=== PATIENT | male | born 1960 | race Caucasian/White ===

== ENCOUNTER 2017-09-20 04:02 | Emergency (ER) | payer BC, OTHER ==
--- OUTSIDE RECORDS SUMMARY | 2017-09-20 04:04 | XMS REPORT | Clinical Summary ---
:1960 Author Organization [facility] Address [address] [place] [address] Care Team Providers Name Role Phone Johnny Diez DO Primary Care Provider Allergies Active Allergy Reactions Severity Noted Date Comments No Known Drug Allergies Current Medications Prescription Sig. Disp. Refills Start Date End Date Status carvedilol (COREG) 25 Take 25 mg by 12/06/2016 Active MG tablet mouth 2 (two) times a day. furosemide (LASIX) 40 Take 40 mg by 12/06/2016 Active mg tablet mouth once daily. lansoprazole TAKE ONE CAPSULE 11/28/2016 Active (PREVACID) 30 MG BY MOUTH DAILY capsule 30 MIN BEFORE BREAKFAST metFORMIN (FORTAMET) Take 1,000 mg by 12/06/2016 Active 1,000 mg 24 hr tablet mouth 2 (two) times a day. spironolactone Take 25 mg by 11/28/2016 Active (ALDACTONE) 25 MG mouth once tablet daily. valsartan (DIOVAN) Take 160 mg by 01/05/2017 Active 160 MG tablet mouth 2 (two) times a day. allopurinol Take 100 mg by Active (ZYLOPRIM) 100 MG mouth daily. tablet liraglutide (VICTOZA Inject 1.2 mg Active 2-SAM) 0.6 mg/0.1 mL under the skin (18 mg/3 mL) pen daily. injector aspirin (ECOTRIN) 81 Take 81 mg by Active MG enteric coated mouth daily. tablet insulin asp Inject under the Active prt-insulin ASPART skin. (NovoLOG 70/30) 100 unit/mL (70-30) injection digOXIN (LANOXIN) 125 Take 125 mcg by 3 11/30/2016 03/31/2017 Discontinued mcg tablet mouth once daily. Active Problems Problem Noted Date Essential hypertension 03/24/2017 Overview: Added automatically from request for surgery [id number] SOB (shortness of breath) 03/24/2017 Overview: Added automatically from request for surgery [id number] Coronary artery disease involving [place] coronary artery of [place] heart 03/24 without angina pectoris Overview: Added automatically from request for surgery [id number] Cardiomyopathy 03/24/2017 Overview: Added automatically from request for surgery [id number] Benign hypertension 01/12/2017 Encounters Date Type Specialty Care Team Description 03/31/2017 Hospital Procedural Dat [facility] Essential hypertension; Encounter Cardiology MD Chitra Coronary artery disease involving [place] coronary artery of [place] heart without angina pectoris; Cardiomyopathy, unspecified type; SOB (shortness of breath) 03/31/2017 Procedure Pass Procedural Cardiology 03/31/2017 Surgery Procedural Dat [facility] Cv left heart cath w lv Cardiology MD Chitra gram cors [[id number] (CPT)] 03/24/2017 Orders Only Cardiology Sony Phelps MA Essential hypertension ( Primary Dx); Coronary artery disease involving [place] coronary artery of [place] heart without angina pectoris; Cardiomyopathy, unspecified type; SOB (shortness of breath) 03/23/2017 Office Visit Cardiology James Rudolph CAD in [place] artery MD As[place]ion (Primary Dx) 03/02/2017 Office Visit Cardiology James Rudolph Cardiomyopathy (Primary MMD Parveen Dx) 02/23/2017 Telephone Cardiology Nam Chatman RN 02/19/2017 Telephone Cardiology Angela Chatman RN 01/12/2017 Lab Lab James Rudolph Other hyperlipidemia MD Asuncion 01/12/2017 Office Visit Cardiology James Rudolph Essential hypertension ( Primary Dx); MD Asuncion Cardiomyopathy; Other hyperlipidemia; SOB (shortness of breath) on exertion; Abnormal electrocardiogram (ECG) (EKG) after 09/19/2016 Social History Tobacco Use Types Packs/Day Years Used Date Never Smoker Alcohol Use Drinks/Week oz/Week Comments Yes Sex Assigned at Date Recorded Not on file Last Filed Vital Signs Vital Sign Reading Time Taken Blood Pressure 126/76 03/31/2017 4:30 PM CDT Pulse 75 03/31/2017 4:30 PM CDT Temperature 35.8 C (96.5 F) 03/31/2017 9:13 AM CDT Respiratory Rate 24 03/31/2017 4:30 PM CDT Oxygen Saturation 96% 03/31/2017 4:30 PM CDT Inhaled Oxygen Concentration - - Weight 117 kg (258 lb) 03/31/2017 9:27 AM CDT Height 177.8 cm (5' 10") 03/31/2017 9:27 AM CDT Body Mass Index 37.02 03/31/2017 9:27 AM CDT Plan of Treatment Health Maintenance Due Date Last Done Comments COLONOSCOPY 2008 INFLUENZA VACCINE 01/12/2018 Procedures Procedure Name Priority Date/Time Associated Diagnosis Comments CV LEFT HEART CATH LV Routine 03/31/2017 Essential hypertension Results for GRAM WITH CORS 12:19 PM CDT SOB (shortness of this procedure breath) are in the Coronary artery disease results involving [place] section. coronary artery of [place] heart without angina pectoris Cardiomyopathy, unspecified type CV ECHOCARDIOGRAM Routine 01/29/2017 SOB (shortness of Results for STRESS TEST W CONTRAST 4:10 PM CDT breath) on exertion this procedure (CH/SPG) Abnormal are in the electrocardiogram (ECG) results (EKG) section. CV STRESS TEST Routine 01/29/2017 SOB (shortness of Results for ECHOCARDIOGRAPHY 4:10 PM CDT breath) on exertion this procedure Abnormal are in the electrocardiogram (ECG) results (EKG) section. after 09/19/2016 Results Cv analyst microbiology lab procedure (03/31/2017 12:19 PM) Component Value Ref Range Cath EF Estimated 35 % Specimen Performing Laboratory [facility] [address] [place] [address] Narrative Findings: LAD with calcification in the proximal and mid segment but no significant stenosis. RCA with mild non-obstructive disease LHC with LVEDP 12mmHg and enlarged LV cavity with moderately depressed EF. Hypokinesis most pronounced in the inferior wall Procedure Details Selective coronary angiography and LHC / LV gram via R TOLL PATROLMAN 4F Estimated GFR (03/31/2017 11:52 AM) Component Value Ref Range GFR Non Af Amer 69 mL/min/1.73 m2 GFR Af Amer 83 mL/min/1.73 m2 Comment: Chronic kidney disease: <60 mL/min/1.73m2 Kidney failure: <15 mL/min/1.73m2 The estimated GFR is calculated from the IDMS-traceable Modification of Diet in Renal Disease Equation. The accuracy of the calculation is poor when the creatinine is normal. Calculated values >90 mL/min/1.73m2 are not reported. This equation has not been validated in children (<18 years), women, the elderly (>70 years), or ethnic groups other than Caucasians and Americans. Specimen Performing Laboratory Plasma specimen [facility] DEPARTMENT OF PATHOLOGY AND [facility] MEDICINE [address] [place] [address] Creatinine level (03/31/2017 11:52 AM) Component Value Ref Range Creatinine 1.1 0.7 - 1.2 mg/dL Specimen Performing Laboratory Plasma specimen [facility] DEPARTMENT OF PATHOLOGY AND [facility]IC[facility] [address] [place] [address] ECG 12 lead (03/31/2017 9:45 AM)Only the most recent of2 resultswithin the time period is included. Component Value Ref Range Ventricular rate 69 Atrial rate 69 TX interval 120 QRSD interval 120 QT interval 414 QTC interval 443 P axis 1 -4 QRS axis 1 -11 T wave axis -85 EKG impression Normal sinus rhythm-Incomplete left bundle branch block-T wave abnormality, consider inferolateral ischemia-Abnormal ECG-In automated comparison with ECG of 12-JAN-2017 13:36,-No significant change was found- Specimen Performing Laboratory [facility] MUSE [address] [place] [address] POC glucose (03/31/2017 9:29 AM) Component Value Ref Range POC glucose 109 (H) 65 - 99 mg/dL Comment: [facility] Notified RN Meter ID: [id number] Petrography Teacher: Dominik Jackson Specimen Performing Laboratory [facility] OF PATHOLOGY AND [facility] MEDIC[facility] [address] [place] [address] Echocardiogram stress Doppler with contrast 3d if needed (01/29/2017 4:10 PM) Specimen [facility] [address] [place] [address] Narrative [facility] Stress Echocardiography Report Pat.Name:RG ALVAREZ Pat.ID:[id number] St.Date: 01/29/2017 Refer.MD:JAMES RUDOLPH MD Exam Time: 3:07:00 PMStudy Type:Stress Echo Height:73inWeight:248lb BSA: 2.36 m2 DOBAge:1960,56Y Sex: MALEBP:105/58 HR:72 bpmSonogrphr: Willis Rooney [facility] Pat. Stat.:OutpatientRoom:Carlos Cramer Study Status:Final Echo Event ID:[id number] Order ID:[id number] Reason for Study:Abnormal EKG Procedures:Intravenous Definity Contrast, Exercise Echo/Treadmill and Colorflow Doppler Race: SUMMARY: Overall Stress Interp: Abnromal stress echo. Previous infarction or scarring is present. No ischemia is detected during stress. Distribution: Right coronary artery territory. Circumflex artery territory. FINDINGS: RESTING FINDINGS LV: LV size is nnle-ii-ejzvzwwfyg enlarged. LV function is moderatelydepressed. Estimated EF is 35-39%. RV: RV size is normal. RV systolic function is normal. LA: LA volume is moderately enlarged. RA: RA size is normal. AO: Aortic root diameter is normal. VICENTE: Small posterolateral pericardial effusion. AV: No structural AV abnormalities noted. MV: No structural MV abnormalities noted. PV: No structural PV abnormalities noted. A trace of pulmonic regurgitation. TV: No structural TV abnormalities noted. Herzog: LV relaxation is impaired. Hepatic vein pressure is normal, RApressure < 5mmHg. STRESS FINDINGS LV: LV function is mild to moderately depressed. Estimated EF is 40-44%. STRESS: Baseline Vital Signs:Intervention: Treadmill Protocol:Enrike HR:73Duration: 06:00 BP:105/58 Rhythm:NSR, NIVCD, T wave abn Stress Test Results: Max HR:123 Contrast: Definity 2 ml Target HR: 162 % Target:76 % Max BP:142/64 Max RPP: [id number] Symptoms and Complications: Overall Stress Interp: Abnromal stress echo. Previous infarction or scarring is present. No ischemia is detected during stress. Stress ECG Interp: Normal Blood Pressure Response to Exercise, Normal Stress ECG. No ST changes occurred during stress. MEASUREMENTS: 2D Parasternal Long [place] LVOT 2.4 cmAo An2.5 cm LVIDd6 cmIndex2.5 cm/m Ao Rtd 4 cm Index1.7 cm/m LVIDs4.5 cm LV Bker312.6 g(122-174) IVSd 1.2 cmLVM Lwplb150.6 g/m2 LVPWd1 cmRWT0.6 LA Ds4.5 cm LV EF Biplane VBKNI696.5 ml (65-193) Index79 ml/m LV SV 69.3 ml MQLFE256.2 mlIndex 49.7 ml/m LV EF 37.2 %(63-77) LA Sng Plane LA Area 27.2 cm2(8.8-23.4) LA Vol96.9 ml Index41 ml/m LA LngAx 6.5 cm WALL MOTION: RESTING WALL MOTION: Basal Inferior, Mid Inferior pruett are akinetic.Basal Anterior, Basal Anteroseptal, Basal Inferoseptal, Basal Inferolateral, Basal Anterolateral, Mid Anterior, Mid Anteroseptal, Mid Inferoseptal, Mid Inferolateral, Mid Anterolateral, Apical Anterior, Apical Septal, Apical Inferior, Apical Lateral, Apical pruett are hypokinetic. Wall Index=2.1 STRESS WALL MOTION: Basal Inferior, Basal Inferolateral, Mid Inferior, Mid Inferolateral, Mid Anterolateral pruett are akinetic.Basal Anterior, Basal Anteroseptal, Basal Inferoseptal, Basal Anterolateral, Mid Anterior, Mid Anteroseptal, Mid Inferoseptal, Apical Anterior, Apical Septal, Apical Inferior, Apical Lateral, Apical pruett are hypokinetic. Stress Wall Index=2.3 Signed 01/29/2017 05:28 PM Maged Pierre MD Procedure Note Interface, Radiology Results In - 01/29/2017 5:30 PM CDT [facility] Stress Echocardiography Report Pat.Name: RG ALVAREZ.ID: [id number] St.Date: 01/29/2017 Refer.MD: JAMES RUDOLPH MD Exam Time: 3:07:00 PM Study Type:Stress Echo Height: 73in Weight: 248lb BSA: 2.36 m2 Age: 11 1960,56Y Sex: MALE BP: 105/58 HR: 72 bpm Sonogrphr: LEONOR Briggs Pat. Stat.:Outpatient Room: [place] [address] Study Status:Final Echo Event ID:[id number] Order ID: [id number] Reason for Study:Abnormal EKG Procedures:Intravenous Definity Contrast, Exercise Echo/Treadmill and Colorflow Doppler Race: SUMMARY: Overall Stress Interp: Abnromal stress echo. Previous infarction or scarring is present. No ischemia is detected during stress. Distribution: Right coronary artery territory. Circumflex artery territory. FINDINGS: RESTING FINDINGS LV: LV size is bnhw-iz-hichmnnfkk enlarged. LV function is moderately depressed. Estimated EF is 35-39%. RV: RV size is normal. RV systolic function is normal. LA: LA volume is moderately enlarged. RA: RA size is normal. AO: Aortic root diameter is normal. VICENTE: Small posterolateral pericardial effusion. AV: No structural AV abnormalities noted. MV: No structural MV abnormalities noted. PV: No structural PV abnormalities noted. A trace of pulmonic regurgitation. TV: No structural TV abnormalities noted. Herzog: LV relaxation is impaired. Hepatic vein pressure is normal, RA pressure < 5mmHg. STRESS FINDINGS LV: LV function is mild to moderately depressed. Estimated EF is 40-44%. STRESS: Baseline Vital Signs: Intervention: Treadmill Protocol: Enrike HR: 73 Duration: 06:00 BP: 105/58 Rhythm: NSR, NIVCD, T wave abn Stress Test Results: Max HR: 123 Contrast: Definity 2 ml Target HR: 162 % Target: 76 % Max BP: 142/64 Max RPP: [id number] Symptoms and Complications: Overall Stress Interp: Abnromal stress echo. Previous infarction or scarring is present. No ischemia is detected during stress. Stress ECG Interp: Normal Blood Pressure Response to Exercise, Normal Stress ECG. No ST changes occurred during stress. MEASUREMENTS: 2D Parasternal Long [place] LVOT 2.4 cm Ao An 2.5 cm LVIDd 6 cm Index 2.5 cm/m Ao Rtd 4 cm Index 1.7 cm/m LVIDs 4.5 cm LV Mass 317.6 g (122-174) IVSd 1.2 cm LVM Index 134.6 g/m2 LVPWd 1 cm RWT 0.6 LA Ds 4.5 cm LV EF Biplane LVEDV 186.5 ml (65-193) Index 79 ml/m LV SV 69.3 ml LVESV 117.2 ml Index 49.7 ml/m LV EF 37.2 % (63-77) LA Sng Plane LA Area 27.2 cm2 (8.8-23.4) LA Vol 96.9 ml Index 41 ml/m LA LngAx 6.5 cm WALL MOTION: RESTING WALL MOTION: Basal Inferior, Mid Inferior pruett are akinetic. Basal Anterior, Basal Anteroseptal, Basal Inferoseptal, Basal Inferolateral, Basal Anterolateral, Mid Anterior, Mid Anteroseptal, Mid Inferoseptal, Mid Inferolateral, Mid Anterolateral, Apical Anterior, Apical Septal, Apical Inferior, Apical Lateral, Apical pruett are hypokinetic. Wall Index=2.1 STRESS WALL MOTION: Basal Inferior, Basal Inferolateral, Mid Inferior, Mid Inferolateral, Mid Anterolateral pruett are akinetic. Basal Anterior, Basal Anteroseptal, Basal Inferoseptal, Basal Anterolateral, Mid Anterior, Mid Anteroseptal, Mid Inferoseptal, Apical Anterior, Apical Septal, Apical Inferior, Apical Lateral, Apical pruett are hypokinetic. Stress Wall Index=2.3 Signed 01/29/2017 05:28 PM Maged Pierre MD Cv exercise treadmill stress (nuclear or echo) (01/29/2017 4:10 PM) Component Value Ref Range Resting HR 90 Resting BP 105 Peak MET Achieved 7.0 Protocol Name ENRIKE Time in Exercise Phase 00:06:00 Max Systolic BP 142 Max Diastolic BP 64 Max Heart Rate 123 Max Predicted Heart Rate 162 Target HR Formula (220 - Age)*85% Test Indication SOB/Abnormal ECG Arrhy During Ex ECG Interp Before EX ECG Interp During Ex Ex Summary Comment Overall HR Response to Exercise Overall BP Response To Exercise Reason for Termination SOB/Leg cramp Stress Test Impression Waveform interpreted in report associated with image study. No interpretation is provided as part of this Stress ECG report.---Electronically Signed By Maged Pierre MD ([id number]), acquisitions editor Waleska Naidu ([id number]) on 02/01/2017 9:48:20 AM Specimen Performing Laboratory [facility] MUSE [address] [place] [address] Lipid panel (01/12/2017 3:21 PM) Component Value Ref Range Cholesterol 192 100 - 199 mg/dL Triglycerides 376 (H) 0 - 149 mg/dL HDL cholesterol 26 (L) >39 mg/dL VLDL cholesterol clem 75 (H) 5 - 40 mg/dL LDL cholesterol calculated 91 0 - 99 mg/dL Non-HDL cholesterol 166 (H) 0 - 129 mg/dL Specimen Performing Laboratory Blood [facility] Narrative Performed at:[address] [place], [place] [id number] Habilitation Worker: Modesto Wynn MD, Phone:[phone] Comprehensive metabolic panel (01/12/2017 3:21 PM) Component Value Ref Range Glucose 277 (H) 65 - 99 mg/dL BUN, whole blood 17 6 - 24 mg/dL Creatinine 1.10 0.76 - 1.27 mg/dL EGFR Non-Afr. Moroccan 74 >59 mL/min/1.73 EGFR 85 >59 mL/min/1.73 BUN/creatinine ratio 15 9 - 20 Sodium 136 134 - 144 mmol/L Potassium 4.7 3.5 - 5.2 mmol/L Chloride 93 (L) 96 - 106 mmol/L CO2 25 18 - 29 mmol/L Calcium 9.7 8.7 - 10.2 mg/dL Protein 7.2 6.0 - 8.5 g/dL Albumin, S 4.3 3.5 - 5.5 g/dL Globulin, total 2.9 1.5 - 4.5 g/dL Albumin/globulin ratio 1.5 1.2 - 2.2 Total bilirubin 0.8 0.0 - 1.2 mg/dL Alkaline phosphatase 53 39 - 117 IU/L AST 124 (H) 0 - 40 IU/L ALT 86 (H) 0 - 44 IU/L Specimen Performing Laboratory Blood [facility] Narrative Performed at:[address] [place], [place] [id number] Habilitation Worker: Modesto Wynn MD, Phone:[phone] after 09/19/2016 Insurance Payer Benefit Plan / Group Subscriber ID Type Phone Address BCBS BCBS OUT OF STATE xxxxxxxxxxxx PPO CIGNA CIGNA PPO xxxxxxxxxxx PPO Work: [id number] [phone] [place], [place] [address] RG ALVAREZ Institutional Self 1960 Work: [id number] [phone] [address] [place], [place] [address]
[2017-09-20] MEDS ORDERED: KETOROLAC 30 MG/ML INJ ONE (04:59)
[2017-09-20 05:02] LABS: Absolute Lymphocytes (CBC) 1.3 K/uL (0.7-4.9); Absolute Neutrophil 8.1 K/uL (1.8-8.0); Basophils % 0.9 % (0-1.3); Eosinophils % 3.5 % (0-4.4); Hematocrit 39.9 % (39.6-49.0); Lymphocytes % 12.1 % (15.3-44.8); MCH 32.1 pg (27.0-35.0); MCV 91.5 fL (80-100); MPV 9.3 fL (7.6-11.3); Monocytes % 8.8 % (3.3-12.3); RBC Red Blood Cell Count 4.36 M/uL (4.33-5.43)
[2017-09-20 05:07] LABS: Potassium 4.1 mEq/L (3.6-5.0)
[2017-09-20 05:08] LABS: Glomerular Filtration Rate > 60 mL/min (>60)
[2017-09-20 05:13] LABS: Bilirubin Total 1.1 mg/dL (0.3-1.2)
[2017-09-20 05:14] LABS: Albumin 3.8 g/dL (3.2-5.5); Bilirubin Direct 0.2 mg/dL (0-0.2); Protein, Total 7.5 g/dL (6.0-8.3)
[2017-09-20] MEDS ORDERED: NA CHLORIDE 0.9% 1,000 ML ONE (06:16)
--- NOTE | 2017-09-20 06:51 | ER ---
Nurse's Notes [facility] Name: Rg Ibarra Age: 57 yrs Sex: Male : 1960 Arrival Date: 09/20/2017 Time: 04:07 Bed 5 Private MD: Diagnosis: Calculus of kidney Presentation: 09/20 04:15 Presenting complaint: Patient states: R FLANK PAIN AND NAUSEA SINCE LAST NIGHT. bp Transition of care: patient was not received from another setting of care. Onset of symptoms was September 19, 2017 at 21:00. Care prior to arrival: None. 04:15 Method Of Arrival: Ambulatory bp 04:15 Acuity: ANDREW 3 bp Triage Assessment: 07:50 General: Appears in no apparent distress. comfortable. GI: Reports none, states ch symptoms are resolved. Historical: - Allergies: 04:25 No Known Allergies; bp - Home Meds: 04:25 aspirin 81 mg Oral chew 1 tab once daily [Active]; furosemide 40 mg oral tab 1 tab once bp daily [Active]; insulin NOVOLOG 70/30 55 unit twice a day [Active]; victoza 1.8 daily [Active]; metformin 1,000 mg Oral tr24 2 tabs once daily [Active]; spironolactone 25 mg Oral tab 1 tab 2 times per day [Active]; valsartan 160 mg oral tab 1 tab [Active]; - PMHx: 04:25 CHF; Diabetes - IDDM; Hypertension; Gout; bp - Immunization history:: Adult Immunizations up to date. - Social history:: Smoking status: Patient/guardian denies using tobacco. Screenin:29 Abuse screen: Denies threats or abuse. Denies injuries from another. Nutritional bp screening: No deficits noted. Tuberculosis screening: No symptoms or risk factors identified. Fall Risk None identified. Assessment: 04:30 General: Behavior is calm, cooperative, appropriate for age. General: Appears in no bp apparent distress. uncomfortable, obese. Pain: Complains of pain in posterior aspect of right lateral abdomen. Neuro: Level of Consciousness is awake, alert, obeys commands, Oriented to person, place, time, situation, Appropriate for age. Cardiovascular: No deficits noted. Rhythm is sinus tachycardia. Respiratory: Airway is patent Respiratory effort is even, unlabored, Respiratory pattern is regular, symmetrical. GI: Abdomen is obese, Abd is soft X 4 quads. : No signs and/or symptoms were reported regarding the genitourinary system. EENT: No signs and/or symptoms were reported regarding the EENT system. Derm: No deficits noted. Musculoskeletal: Circulation, motion, and sensation intact. Range of motion: intact in all extremities. 06:00 Reassessment: UOP PENDING. CT NEGATIVE PER MD. VS STABLE ON MONITOR. bp 07:17 Reassessment: Patient appears in no apparent distress at this time. Patient and/or family updated on plan of care and expected duration. Pain level reassessed. Patient is alert, oriented x 3, equal unlabored respirations, skin warm/dry/pink. AWAITING URINE MICRO RESULTS PRIOR TO DISCHARGE. PT URINE SAMPLE OBTAINED AT 0700. SENT TO LAB AT 0710. Patient states feeling better. Patient states symptoms have improved. Reassessment: Patient states feeling better. Patient states symptoms have improved. General: Appears in no apparent distress. comfortable, Behavior is calm, cooperative, appropriate for age. Pain: Denies pain. Respiratory: Airway is patent Respiratory effort is even, unlabored. GI: No signs and/or symptoms were reported involving the gastrointestinal system. Derm: Skin is pink, warm \T\ dry. 07:48 Reassessment: Patient appears in no apparent distress at this time. No changes from previously documented assessment. Patient and/or family updated on plan of care and expected duration. Pain level reassessed. Patient is alert, oriented x 3, equal unlabored respirations, skin warm/dry/pink. Patient denies pain at this time. Patient states feeling better. Patient states symptoms have improved. Vital Signs: 04:25 BP 150 / 85; Pulse 103; Resp 18; Temp 98; Pulse Ox 100% ; Weight 119.29 kg; Height 5 bp ft. 10 in. (177.80 cm); 05:00 BP 128 / 79; Pulse 97; Resp 16; Pulse Ox 98% ; bp 06:00 BP 112 / 81; Pulse 89; Resp 16; Pulse Ox 99% ; bp 07:17 BP 118 / 76; Pulse 85; Resp 16; Temp 97.8; Pulse Ox 99% on R/A; Pain 2/10; ch 07:48 BP 125 / 78; Pulse 86; Resp 14; Temp 98.3; Pulse Ox 99% on R/A; Pain 0/10; ch 04:25 Body Mass Index 37.74 (119.29 kg, 177.80 cm) bp ED Course: 04:07 Patient arrived in ED. es 04:11 Butch Pedro MD is Attending Physician. tw4 04:15 Haroldo Inman, RN is Primary Nurse. bp 04:16 Triage completed. bp 04:28 Arm band placed on. bp 04:29 Patient has correct armband on for positive identification. bp 04:45 Inserted saline lock: 20 gauge in right forearm, using aseptic technique. Blood bp collected. 06:13 CT Abd/Pelvis - Without Cont In Process Unspecified. EDMS 06:50 bank teller on. Pulse ox on. NIBP on. ch 06:50 No provider procedures requiring assistance completed. IV discontinued, intact, ch bleeding controlled, No redness/swelling at site. Pressure dressing applied. 06:58 Primary Nurse role handed off by Haroldo Inman, MONTY 06:58 Susy Meza, MONTY is Primary Nurse. 07:49 No apparent distress. Resting quietly. ch Administered Medications: 04:50 Drug: TORadol 30 mg Route: IVP; Site: right forearm; bp 05:09 Follow up: Response: Pain is decreased bp 05:58 Drug: NS 0.9% 1000 ml Route: IV; Rate: 1 bolus; Site: right forearm; bp 07:19 Follow up: IV Status: Completed infusion; IV Intake: 1000ml ch Intake: 07:19 IV: 1000ml; Total: 1000ml. Outcome: 06:50 Discharge ordered by . tw4 07:49 Discharged to home ambulatory, with family. 07:49 Condition: improved 07:49 Discharge instructions given to patient, family, Instructed on discharge instructions, follow up and referral plans. no drinking with medication, no driving heavy equipment, medication usage, Demonstrated understanding of instructions, follow-up care, medications, Prescriptions given X 2. 07:51 Patient left the ED. Signatures: Dispatcher [employer] EDIN Susy Meza, MONTY MILLAN Penelope Gallardo Brian, RN RN Butch Hayward MD MD tw4 Corrections: (The following items were deleted from the chart) 05:08 04:25 General: Appears in no apparent distress. bp bp
--- NOTE | 2017-09-20 06:51 | EDPHYS ---
Physician Documentation [facility] Name: Rg Ibarra Age: 57 yrs Sex: Male : 1960 Arrival Date: 09/20/2017 Time: 04:07 Bed 5 Private MD: ED Physician Butch Pedro HPI: 09/20 04:35 This 57 yrs old Male presents to ER via Ambulatory with complaints of Flank tw4 Pain, Nausea. 04:35 The patient complains of pain in the right low back. The pain radiates to the right tw4 lower quadrant. Onset: The symptoms/episode began/occurred today. Modifying factors: The symptoms are alleviated by nothing. the symptoms are aggravated by nothing. Associated signs and symptoms: The patient has no apparent associated signs or symptoms. Severity of pain: At its worst the pain was moderate in the emergency department the pain is unchanged. The patient has not experienced similar symptoms in the past. Historical: - Allergies: 04:25 No Known Allergies; bp - Home Meds: 04:25 aspirin 81 mg Oral chew 1 tab once daily [Active]; furosemide 40 mg oral tab 1 tab once bp daily [Active]; insulin NOVOLOG 70/30 55 unit twice a day [Active]; victoza 1.8 daily [Active]; metformin 1,000 mg Oral tr24 2 tabs once daily [Active]; spironolactone 25 mg Oral tab 1 tab 2 times per day [Active]; valsartan 160 mg oral tab 1 tab [Active]; - PMHx: 04:25 CHF; Diabetes - IDDM; Hypertension; Gout; bp - Immunization history:: Adult Immunizations up to date. - Social history:: Smoking status: Patient/guardian denies using tobacco. ROS: 04:35 Constitutional: Negative for fever, chills, and weight loss, Cardiovascular: Negative tw4 for chest pain, palpitations, and edema, Respiratory: Negative for shortness of breath, cough, wheezing, and pleuritic chest pain, Abdomen/GI: Negative for abdominal pain, nausea, vomiting, diarrhea, and constipation. 04:35 Back: Positive for flank pain, on the right. Exam: 04:35 Constitutional: This is a well developed, well nourished patient who is awake, alert, tw4 and in no acute distress. Head/Face: Normocephalic, atraumatic. Chest/axilla: Normal chest wall appearance and motion. Nontender with no deformity. No lesions are appreciated. Cardiovascular: Regular rate and rhythm with a normal S1 and S2. No gallops, murmurs, or rubs. Normal PMI, no JVD. No pulse deficits. Respiratory: Lungs have equal breath sounds bilaterally, clear to auscultation and percussion. No rales, rhonchi or wheezes noted. No increased work of breathing, no retractions or nasal flaring. Abdomen/GI: Soft, non-tender, with normal bowel sounds. No distension or tympany. No guarding or rebound. No evidence of tenderness throughout. 04:35 MS/ Extremity: Pulses equal, no cyanosis. Neurovascular intact. Full, normal range of motion. Neuro: Awake and alert, GCS 15, oriented to person, place, time, and situation. Cranial nerves II-XII grossly intact. Motor strength 5/5 in all extremities. Sensory grossly intact. Cerebellar exam normal. Normal gait. 04:35 Back: pain, that is very mild, ROM is normal, normal spinal alignment noted, CVA tenderness, that is mild, is noted on the right. Vital Signs: 04:25 BP 150 / 85; Pulse 103; Resp 18; Temp 98; Pulse Ox 100% ; Weight 119.29 kg; Height 5 bp ft. 10 in. (177.80 cm); 05:00 BP 128 / 79; Pulse 97; Resp 16; Pulse Ox 98% ; bp 06:00 BP 112 / 81; Pulse 89; Resp 16; Pulse Ox 99% ; bp 07:17 BP 118 / 76; Pulse 85; Resp 16; Temp 97.8; Pulse Ox 99% on R/A; Pain 2/10; ch 07:48 BP 125 / 78; Pulse 86; Resp 14; Temp 98.3; Pulse Ox 99% on R/A; Pain 0/10; ch 04:25 Body Mass Index 37.74 (119.29 kg, 177.80 cm) bp MDM: 04:11 Patient medically screened. tw4 04:35 Data reviewed: vital signs, nurses notes. Counseling: I had a detailed discussion with [facility] the patient and/or guardian regarding: the historical points, exam findings, and any diagnostic results supporting the discharge/admit diagnosis. 09/20 04:23 Order name: Amylase, Serum; Complete Time: 05:53 09/20 04:23 Order name: Basic Metabolic Panel; Complete Time: 05:53 09/20 05:10 Interpretation: Normal except: GLUC 133; NA 134. 09/20 04:23 Order name: CBC with Diff; Complete Time: 05:10 09/20 05:10 Interpretation: Normal except: PLT 125; CATHERINE% 74.7; LYM% 12.1; NEUT A 8.1. 09/20 04:23 Order name: Creatinine for Radiology; Complete Time: 05:10 09/20 04:23 Order name: Hepatic Function; Complete Time: 05:53 09/20 05:53 Interpretation: Normal except: SGOT 60; ALK 40; SGPT 75; A/G 1.0; GLOB 3.7. 09/20 04:23 Order name: Lipase; Complete Time: 05:53 09/20 04:23 Order name: Urine Microscopic Only; Complete Time: 07:43 09/20 04:23 Order name: IV Saline Lock; Complete Time: 04:50 09/20 04:23 Order name: Labs collected and sent; Complete Time: 04:50 09/20 04:23 Order name: Urine Dipstick-Ancillary (obtain specimen); Complete Time: 07:20 09/20 04:23 Order name: CT Abd/Pelvis - Without Cont 09/20 07:17 Order name: Urine Dipstick--Ancillary (enter results); Complete Time: 07:43 bd Administered Medications: 04:50 Drug: TORadol 30 mg Route: IVP; Site: right forearm; bp 05:09 Follow up: Response: Pain is decreased bp 05:58 Drug: NS 0.9% 1000 ml Route: IV; Rate: 1 bolus; Site: right forearm; bp 07:19 Follow up: IV Status: Completed infusion; IV Intake: 1000ml ch Disposition: 09/20/17 06:50 Discharged to Home. Impression: Calculus of kidney. - Condition is Stable. - Discharge Instructions: Kidney Stones. - Prescriptions for Ibuprofen 800 mg Oral Tablet - take 1 tablet by ORAL route every 12 hours As needed take with food; 20 tablet. Tylenol- Codeine #3 300-30 mg Oral Tablet - take 2 tablet by ORAL route every 6 hours As needed; 6 tablet. - Medication Reconciliation Form, Thank You Letter, Antibiotic Education, Prescription Opioid Use form. - Follow up: Private Physician; When: As needed; Reason: Recheck today's complaints, Continuance of care, Re-evaluation by your physician. - Problem is new. - Symptoms have improved. Signatures: Dispatcher [employer] Susy Dunn RN RN Boris Morin PA PA 8 Haroldo Inman RN RN Butch Hayward MD MD tw4
[2017-09-20 07:34] LABS: Urine Amorphous Sediment 1+ /HPF (NONE SEEN); Urine Bacteria <20 /HPF (NONE SEEN); Urine Culture Reflex Order NOT NEEDED; Urine Mucus 1+ /HPF (NONE SEEN); Urine RBC <5 /HPF (NONE SEEN)
[2017-09-20 07:36] LABS: Urine Blood NEGATIVE (NEG); Urine Glucose NEGATIVE (NEG); Urine Protein TRACE (NEG); Urine Specific Gravity 1.025 (1.005-1.030)
--- NOTE | 2017-09-20 08:05 | RAD REPORT ---
EXAM DESCRIPTION: CT - Abdomen Pelvis Wo Contrast - 09/20/2017 6:54 am CLINICAL HISTORY: Abdominal pain right flank pain with nausea. COMPARISON: 2016 TECHNIQUE: Computed axial tomography of the abdomen and pelvis was obtained. IV and oral contrast we re not requested. A preliminary report was generated by [employer] and reviewed prior to thi s dictation. All CT scans are performed using dose optimization technique as appropriate and may include automated exposure control or mA/KV adjustment according to patient size. FINDINGS: The evaluation of solid organs, vessels and bowel is limited secondary to the lack of con trast administration. The liver, spleen, pancreas, and adrenal glands appear grossly normal. Punctate calculi S present wit hin each kidney without hydronephrosis. 17 millimeter low-density mass within the left kidney is unch anged probably representing a cyst The appendix is normal. There is no evidence of diverticulitis. An 11 millimeter gastrohepatic ligame nt lymph node is unchanged 2016 and likely benign. The gallbladder has been removed IMPRESSION: Tiny nonobstructing bilateral renal calculi. No acute abnormality is displayed
== END 2017-09-20 07:51 | disposition home or self-care (01) ==
LOC: ER 04:02
DX: N20.0 Calculus of kidney (principal); I10 Essential (primary) hypertension; E11.9 Type 2 diabetes mellitus without complications; Z79.82 Long term (current) use of aspirin; Z79.4 Long term (current) use of insulin
CPT/HCPCS: 36415; 74176; 80048; 80076; 81003; 81015; 82150; 83690; 85025; 96361; 96374; 99284; J7030

== ENCOUNTER 2018-03-07 02:44 | Emergency (ER) | payer BC, OTHER ==
[2018-03-07] MEDS ORDERED: ONDANSETRON 4 MG/2 ML VIAL ONE (03:14)
[2018-03-07] MEDS ORDERED: MORPHINE 4 MG/ML SYR ONE (03:14)
[2018-03-07 03:37] LABS: Absolute Lymphocytes (CBC) 2.5 K/uL (0.7-4.9); Absolute Neutrophil 6.3 K/uL (1.8-8.0); Basophils % 0.7 % (0-1.3); Eosinophils % 1.4 % (0-4.4); Hematocrit 42.5 % (39.6-49.0); Lymphocytes % 25.1 % (15.3-44.8); MCH 32.7 pg (27.0-35.0); MCV 93.5 fL (80-100); MPV 9.8 fL (7.6-11.3); Monocytes % 10.4 % (3.3-12.3); RBC Red Blood Cell Count 4.54 M/uL (4.33-5.43)
[2018-03-07] MEDS ORDERED: MEPERIDINE HCL 50 MG/ML AMP ONE (03:53)
[2018-03-07 04:02] LABS: Albumin 3.2 g/dL (3.4-5.0); Bilirubin Direct 0.4 mg/dL (0-0.2); Potassium 4.2 mmol/L (3.5-5.1); Protein, Total 7.5 g/dL (6.4-8.2); Troponin (Emerg Dept Use Only) 0.02 ng/mL (0.0-0.045)
--- NOTE | 2018-03-07 04:57 | EDPHYS ---
Physician Documentation [facility] Name: Rg Ibarra Age: 57 yrs Sex: Male : 1960 Arrival Date: 03/07/2018 Time: 02:45 Bed 7 Private MD: Johnny Diez ED Physician Evangelista Escobar HPI: 03/07 03:42 This 57 yrs old Male presents to ER via Ambulatory with complaints of Flank rn Pain. 03:42 The patient complains of pain in the low back area and right mid back. The pain rn radiates to the abdomen. Onset: The symptoms/episode began/occurred just prior to arrival. Modifying factors: The symptoms are alleviated by nothing. the symptoms are aggravated by palpation/percussion. Severity of pain: At its worst the pain was moderate in the emergency department the pain has improved. The patient has experienced similar episodes in the past. Reports right flank/abd pain, began while sleeping, improving slowly, has had kidney stones in past, pain radiates to right shoulder/neck, denies chest pain/sob/cough. + nausea, no vomiting.. Historical: - Allergies: 03:00 No Known Allergies; ao - Home Meds: 03:00 aspirin 81 mg Oral chew 1 tab once daily [Active]; furosemide 40 mg Oral tab 1 tab once ao daily [Active]; insulin NOVOLOG 70/30 55 unit twice a day [Active]; metformin 1,000 mg Oral tr24 2 tabs once daily [Active]; spironolactone 25 mg Oral tab 1 tab 2 times per day [Active]; valsartan 160 mg Oral tab 1 tab [Active]; carvedilol 12.5 mg oral tab 1 tab 2 times per day [Active]; allopurinol 100 mg Oral tab 1 tab once daily [Active]; victoza 1.8 daily [Active]; lanzoprazol [Active]; digoxin 125 mcg Oral tab 1 tab once daily [Active]; - PMHx: 03:00 CHF; Diabetes - IDDM; Gout; Hypertension; ao - PSHx: 03:00 None; ao - Immunization history:: Adult Immunizations up to date. - Social history:: Smoking status: Patient/guardian denies using tobacco, Patient uses alcohol, occasionally. Patient/guardian denies using street drugs. - Ebola Screening: : Patient negative for fever greater than or equal to 101.5 degrees Fahrenheit, and additional compatible Ebola Virus Disease symptoms Patient denies exposure to infectious person Patient denies travel to an Ebola-affected area in the 21 days before illness onset. - Family history:: not pertinent. - Hospitalizations: : No recent hospitalization is reported. ROS: 03:42 Constitutional: Negative for fever, chills, and weight loss, Eyes: Negative for injury, rn pain, redness, and discharge, Neck: Negative for injury, pain, and swelling, Cardiovascular: Negative for chest pain, palpitations, and edema, Respiratory: Negative for shortness of breath, cough, wheezing, and pleuritic chest pain, Abdomen/GI: Negative for vomiting, diarrhea, and constipation, Back: Negative for injury MS/Extremity: Negative for injury and deformity, Skin: Negative for injury, rash, and discoloration, Neuro: Negative for headache, weakness, numbness, tingling, and seizure. Exam: 03:42 Constitutional: This is a well developed, well nourished patient who is awake, alert, rn and in no acute distress. Head/Face: Normocephalic, atraumatic. Eyes: Pupils equal round and reactive to light, extra-ocular motions intact. Lids and lashes normal. Conjunctiva and sclera are non-icteric and not injected. Cornea within normal limits. Periorbital areas with no swelling, redness, or edema. Respiratory: No increased work of breathing, no retractions or nasal flaring. Abdomen/GI: soft, mild tenderness RLQ and right flank, no rebound Back: No spinal tenderness. No costovertebral tenderness. Full range of motion. Skin: Warm, dry with normal turgor. Normal color with no rashes, no lesions, and no evidence of cellulitis. MS/ Extremity: Pulses equal, no cyanosis. Neurovascular intact. Full, normal range of motion. Equal circumference. Neuro: Awake and alert, GCS 15, oriented to person, place, time, and situation. Cranial nerves II-XII grossly intact. Motor strength 5/5 in all extremities. Sensory grossly intact. Cerebellar exam normal. Normal gait. Vital Signs: 02:56 BP 124 / 81; Pulse 87; Resp 16; Temp 99.2(O); Pulse Ox 98% on R/A; Weight 117.03 kg ao (R); Height 5 ft. 10 in. (177.80 cm) (R); Pain 8/10; 03:54 BP 112 / 72; Pulse 83; Resp 16; Pulse Ox 96% ; Pain 7/10; ao 05:13 BP 117 / 64; Pulse 74; Resp 16; Pulse Ox 94% on R/A; Pain 0/10; ao 05:47 BP 101 / 74; Pulse 69; Resp 16; Pulse Ox 96% on R/A; Pain 0/10; ao 02:56 Body Mass Index 37.02 (117.03 kg, 177.80 cm) ao MDM: 02:52 Patient medically screened. rn 04:53 Differential diagnosis: nephrolithiasis, pyelonephritis, UTI. Data reviewed: vital rn signs, nurses notes, lab test result(s), EKG, radiologic studies, CT scan, and as a result, I will discharge patient. Counseling: I had a detailed discussion with the patient and/or guardian regarding: the historical points, exam findings, and any diagnostic results supporting the discharge/admit diagnosis, lab results, radiology results, the need for outpatient follow up, to return to the emergency department if symptoms worsen or persist or if there are any questions or concerns that arise at home. Response to treatment: the patient's symptoms have markedly improved after treatment, and as a result, I will discharge patient. Special discussion: I discussed with the patient/guardian in detail that at this point there is no indication for admission to the hospital. It is understood, however, that if the symptoms persist or worsen the patient needs to return immediately for re-evaluation. ED course: Pt much improved, neg w/u for acute findings, ct shows small pleural effusion but no sob, + fatty liver but normal LFTs, no stone. After discussing with patient results, patient states long standing cramps of back/neck/abd wall, the pain he is having today worse with twisting body and touching and with movement. Most likely musculoskeletal in nature, recommend muscle relaxers, stretching, and rest along with pcp f/u. . 03/07 02:58 Order name: Basic Metabolic Panel; Complete Time: 04:21 rn 03/07 02:58 Order name: CBC with Diff; Complete Time: 03:57 rn 03/07 02:58 Order name: Creatinine for Radiology; Complete Time: 04:21 rn 03/07 02:58 Order name: Hepatic Function; Complete Time: 04:21 rn 03/07 02:58 Order name: Lipase; Complete Time: 04:21 rn 03/07 02:58 Order name: Troponin (emerg Dept Use Only); Complete Time: 04:21 rn 03/07 02:58 Order name: CT Stone Protocol rn 03/07 03:31 Order name: Urine Dipstick--Ancillary (enter results) 2 03/07 02:58 Order name: IV Saline Lock; Complete Time: 03:22 rn 03/07 02:58 Order name: Labs collected and sent; Complete Time: 03:22 rn 03/07 02:58 Order name: EKG; Complete Time: 02:59 rn 03/07 02:58 Order name: EKG - Nurse/Tech; Complete Time: 03:17 rn Administered Medications: 03:15 Drug: Zofran 4 mg Route: IVP; Site: right antecubital; ao 03:51 Follow up: Response: No adverse reaction ao 03:22 Drug: morphine 4 mg Route: IVP; Site: right antecubital; ao 03:51 Follow up: Response: No adverse reaction ao 03:51 Drug: Demerol 50 mg Route: IVP; Site: right antecubital; ao 05:13 Follow up: Response: No adverse reaction ao 05:01 Drug: Valium 5 mg Route: PO; ao 05:46 Follow up: Response: No adverse reaction ao 05:01 Drug: NS 0.9% 500 ml Route: IV; Rate: bolus; Site: right antecubital; ao 05:46 Follow up: IV Status: Completed infusion; IV Intake: 500ml ao 05:13 Drug: Calcium Gluconate 1 grams Route: IVPB; Infused Over: 60 mins; Site: right ao antecubital; 05:46 Follow up: IV Status: Completed infusion; IV Intake: 50ml ao Disposition: 03/07/18 04:56 Discharged to Home. Impression: Muscle spasm, Hypocalcemia, Generalized abdominal pain. - Condition is Stable. - Discharge Instructions: Abdominal Pain, Adult, Muscle Cramps and Spasms. - Prescriptions for Tylenol- Codeine #3 300-30 mg Oral Tablet - take 1 tablet by ORAL route every 6 hours As needed; 15 tablet. Cyclobenzaprine 10 mg Oral Tablet - take 1 tablet by ORAL route every 8 hours As needed; 30 tablet. - Medication Reconciliation Form, Thank You Letter, Antibiotic Education, Prescription Opioid Use form. - Follow up: Private Physician; When: As needed; Reason: Recheck today's complaints, Re-evaluation by your physician. - Problem is new. - Symptoms have improved. Signatures: Dispatcher [employer] EDMS Evangelista Escobar MD MD rn Ortiz, Alex, RN RN ao Corrections: (The following items were deleted from the chart) 03:45 03:42 Constitutional: This is a well developed, well nourished patient who is awake, rn alert, and in no acute distress. Head/Face: Normocephalic, atraumatic. Eyes: Pupils equal round and reactive to light, extra-ocular motions intact. Lids and lashes normal. Conjunctiva and sclera are non-icteric and not injected. Cornea within normal limits. Periorbital areas with no swelling, redness, or edema. Abdomen/GI: soft, mild tenderness RLQ and right flank, no rebound Back: No spinal tenderness. No costovertebral tenderness. Full range of motion. Skin: Warm, dry with normal turgor. Normal color with no rashes, no lesions, and no evidence of cellulitis. MS/ Extremity: Pulses equal, no cyanosis. Neurovascular intact. Full, normal range of motion. Equal circumference. Neuro: Awake and alert, GCS 15, oriented to person, place, time, and situation. Cranial nerves II-XII grossly intact. Motor strength 5/5 in all extremities. Sensory grossly intact. Cerebellar exam normal. Normal gait. rn 05:55 04:56 03/07/2018 04:56 Discharged to Home. Impression: Muscle spasm; Hypocalcemia; ao Generalized abdominal pain. Condition is Stable. Forms are Medication Reconciliation Form, Thank You Letter, Antibiotic Education, Prescription Opioid Use. Follow up: Private Physician; When: As needed; Reason: Recheck today's complaints, Re-evaluation by your physician. Problem is new. Symptoms have improved. rn
--- NOTE | 2018-03-07 04:57 | ER ---
Nurse's Notes [facility] Name: Rg Ibarra Age: 57 yrs Sex: Male : 1960 Arrival Date: 03/07/2018 Time: 02:45 Bed 7 Private MD: Johnny Diez Diagnosis: Muscle spasm;Hypocalcemia;Generalized abdominal pain Presentation: 03/07 02:54 Presenting complaint: Patient states: Right flank pain since Wednesday. Pain radiates to ao the right jaw. Patient positive for nausea and negative for fever or diarrhea. Transition of care: patient was not received from another setting of care. Onset of symptoms is unknown. Risk Assessment: Do you want to hurt yourself or someone else? Patient reports no desire to harm self or others. Initial Sepsis Screen: Does the patient meet any 2 criteria? No. Patient's initial sepsis screen is negative. Does the patient have a suspected source of infection? No. Patient's initial sepsis screen is negative. Care prior to arrival: None. 02:54 Method Of Arrival: Ambulatory ao 02:54 Acuity: ANDREW 3 ao Historical: - Allergies: 03:00 No Known Allergies; ao - Home Meds: 03:00 aspirin 81 mg Oral chew 1 tab once daily [Active]; furosemide 40 mg Oral tab 1 tab once ao daily [Active]; insulin NOVOLOG 70/30 55 unit twice a day [Active]; metformin 1,000 mg Oral tr24 2 tabs once daily [Active]; spironolactone 25 mg Oral tab 1 tab 2 times per day [Active]; valsartan 160 mg Oral tab 1 tab [Active]; carvedilol 12.5 mg oral tab 1 tab 2 times per day [Active]; allopurinol 100 mg Oral tab 1 tab once daily [Active]; victoza 1.8 daily [Active]; lanzoprazol [Active]; digoxin 125 mcg Oral tab 1 tab once daily [Active]; - PMHx: 03:00 CHF; Diabetes - IDDM; Gout; Hypertension; ao - PSHx: 03:00 None; ao - Immunization history:: Adult Immunizations up to date. - Social history:: Smoking status: Patient/guardian denies using tobacco, Patient uses alcohol, occasionally. Patient/guardian denies using street drugs. - Ebola Screening: : Patient negative for fever greater than or equal to 101.5 degrees Fahrenheit, and additional compatible Ebola Virus Disease symptoms Patient denies exposure to infectious person Patient denies travel to an Ebola-affected area in the 21 days before illness onset. - Family history:: not pertinent. - Hospitalizations: : No recent hospitalization is reported. Screenin:02 Abuse screen: Denies threats or abuse. Denies injuries from another. Nutritional ao screening: No deficits noted. Tuberculosis screening: No symptoms or risk factors identified. Fall Risk None identified. Assessment: 03:01 General: Appears in no apparent distress. comfortable, Behavior is calm, cooperative, ao appropriate for age. Pain: Complains of pain in anterior aspect of right lateral abdomen and posterior aspect of right lateral abdomen Pain currently is 8 out of 10 on a pain scale. Neuro: Level of Consciousness is awake, alert, obeys commands, Oriented to person, place, time, situation, Appropriate for age Moves all extremities. Full function Speech is normal, Facial symmetry appears normal. Cardiovascular: Capillary refill < 3 seconds Patient's skin is warm and dry. Respiratory: Airway is patent Respiratory effort is even, unlabored, Respiratory pattern is regular, symmetrical. GI: Abdomen is obese. : No signs and/or symptoms were reported regarding the genitourinary system. EENT: No signs and/or symptoms were reported regarding the EENT system. Derm: Skin is intact, Skin is pink, warm \T\ dry. normal, Skin temperature is warm. Musculoskeletal: Circulation, motion, and sensation intact. Range of motion: intact in all extremities. 03:54 Reassessment: Patient appears in no apparent distress at this time. Patient and/or ao family updated on plan of care and expected duration. Pain level reassessed. Patient is alert, oriented x 3, equal unlabored respirations, skin warm/dry/pink. Patient states feeling better. Patient states symptoms have improved. 05:13 Reassessment: Pending discharge until [place] Gluconate is complete. ao 05:47 Reassessment: Dc instructions given to patient. Patient agree to follow up with PCP. ao Vital Signs: 02:56 BP 124 / 81; Pulse 87; Resp 16; Temp 99.2(O); Pulse Ox 98% on R/A; Weight 117.03 kg ao (R); Height 5 ft. 10 in. (177.80 cm) (R); Pain 8/10; 03:54 BP 112 / 72; Pulse 83; Resp 16; Pulse Ox 96% ; Pain 7/10; ao 05:13 BP 117 / 64; Pulse 74; Resp 16; Pulse Ox 94% on R/A; Pain 0/10; ao 05:47 BP 101 / 74; Pulse 69; Resp 16; Pulse Ox 96% on R/A; Pain 0/10; ao 02:56 Body Mass Index 37.02 (117.03 kg, 177.80 cm) ao ED Course: 02:45 Patient arrived in ED. es 02:47 Beth Alcala MD is Private Physician. es 02:47 Johnny Diez DO is Private Physician. es 02:52 Evangelista Escobar MD is Attending Physician. rn 02:54 Eliezer Hollingsworth RN is Primary Nurse. ao 02:56 Triage completed. ao 03:00 Arm band placed on right wrist. Patient placed in an exam room, Patient notified of ao wait time. 03:02 Patient has correct armband on for positive identification. Pulse ox on. NIBP on. ao 03:15 Inserted saline lock: 20 gauge in right antecubital area, using aseptic technique. ao Blood collected. 03:[address] via wheelchair. kw1 03:35 CT Stone Protocol In Process Unspecified. EDMS 03:36 CT completed. Patient tolerated procedure well. Patient moved back from CT. kw1 05:51 No provider procedures requiring assistance completed. IV discontinued, intact, ao bleeding controlled, No redness/swelling at site. Pressure dressing applied. Administered Medications: 03:15 Drug: Zofran 4 mg Route: IVP; Site: right antecubital; ao 03:51 Follow up: Response: No adverse reaction ao 03:22 Drug: morphine 4 mg Route: IVP; Site: right antecubital; ao 03:51 Follow up: Response: No adverse reaction ao 03:51 Drug: Demerol 50 mg Route: IVP; Site: right antecubital; ao 05:13 Follow up: Response: No adverse reaction ao 05:01 Drug: Valium 5 mg Route: PO; ao 05:46 Follow up: Response: No adverse reaction ao 05:01 Drug: NS 0.9% 500 ml Route: IV; Rate: bolus; Site: right antecubital; ao 05:46 Follow up: IV Status: Completed infusion; IV Intake: 500ml ao 05:13 Drug: Calcium Gluconate 1 grams Route: IVPB; Infused Over: 60 mins; Site: right ao antecubital; 05:46 Follow up: IV Status: Completed infusion; IV Intake: 50ml ao Intake: 05:46 IV: 500ml; Total: 500ml. ao 05:46 IV: 50ml; Total: 550ml. ao Outcome: 04:56 Discharge ordered by . rn 05:52 Discharged to home ambulatory. ao 05:52 Condition: stable 05:52 Discharge instructions given to patient, Instructed on discharge instructions, follow up and referral plans. Demonstrated understanding of instructions, follow-up care, medications, Prescriptions given X 2. 05:55 Patient left the ED. ao Signatures: Dispatcher [employer] Penelope Amezcua Roman, MD MD rn Ortiz, Alex, RN RN ao Wilhelm, Kimberly kw1
[2018-03-07] MEDS ORDERED: DIAZEPAM 5 MG TABLET ONE (04:58)
[2018-03-07] MEDS ORDERED: NA CHLORIDE 0.9% 500 ML ONE (04:58)
[2018-03-07] MEDS ORDERED: CALCIUM GLUCONATE 1 GM IVPB 1 GM/50 ML BAG IV ONE (05:13)
[2018-03-07 05:31] LABS: Urine Blood NEGATIVE (NEG); Urine Glucose NEGATIVE (NEG); Urine Protein NEGATIVE (NEG); Urine pH 5.5 (5.0-7.0)
--- NOTE | 2018-03-07 08:05 | EKG ---
Test Date: 2018-03-07 Test Time: 03:12:49 Shipping Inspector: MONISHA MEASUREMENT RESULTS: Intervals: Rate: 78 TX: 136 QRSD: 118 QT: 378 QTc: 430 [place]: P: 14 TX: 136 QRS: -6 T: 248 INTERPRETIVE STATEMENTS: Normal sinus rhythm Incomplete left bundle branch block T wave abnormality, consider inferior ischemia Abnormal ECG Compared to ECG 11/21/2001 11:35:00 Left bundle-branch block now present Possible ischemia now present T-wave abnormality still present Electronically Signed On 03-07-18 08:04:56 CDT by Hal Macdonald
--- NOTE | 2018-03-07 08:43 | RAD REPORT ---
EXAM DESCRIPTION: CT - Stone Protocol - 03/07/2018 5:09 am CLINICAL HISTORY: Abdominal pain, right-sided flank pain A preliminary report was provided at the time of the study and reviewed prior to final report. COMPARISON: CT imaging September 2017 and September 2015 TECHNIQUE: Axial 5 mm thick images were obtained without oral or IV contrast. The [id number] span s the entirety of the system including uppermost abdomen and lung bases. All CT scans are performed using dose optimization technique as appropriate and may include automated exposure control or mA/KV adjustment according to patient size. FINDINGS: No hydronephrosis is present and no obstructing ureteral calculi. No suspicious renal mass es. Isodense masses and pyelonephritis are not excluded on a stone protocol CT scan. Lobulated renal contours are stable. Perinephric stranding has not changed. Approximately 16 millimeter low-density r ounded mass upper pole left kidney stable back to 2016 and very likely incidental cyst. Bilateral par enchymal calcification. Punctate vascular or caliceal calcifications seen on the right. Urinary bladd er is contracted which accentuates wall thickness. No bladder calculus. Cystitis is not excluded in t his setting. Prostate gland and seminal vesicles are normal range. No suspicious liver parenchymal lesion on noncontrast imaging. Liver attenuation is decreased slightl y relative to spleen. Liver size is prominent but not clearly different. There is some minimal strand ing adjacent to the liver capsule. No gross evidence for capsular nodularity. No pancreatic or peripancreatic abnormality. No acute splenic process. Cholecystectomy clips are pres ent. No biliary tree dilatation. No significant adrenal finding. No suspicious bowel findings. No appendicitis. Active GI process is not suspected. There is minimal d iverticulosis. Moderate stool volume in the rectum and sigmoid portions of the colon. No mass or bulky lymphadenopathy. Fat extends into the origin of the inguinal canals. No free air, pn eumatosis or free fluid. Disc and bony degenerative changes evident. Arterial calcifications are present. IMPRESSION: No hydronephrosis, obstructing calculus or acute process identifiable. Isodense masses and pyelonephritis are not excluded on stone protocol technique. Wall thickening of the urinary bladder is probably due to contraction. Cystitis is not excluded. Trace amount of stranding adjacent to the prominent sized liver. Attenuation indicates mild diffuse f atty infiltration. Given the right upper quadrant symptoms, hepatitis or acute hepatic parenchymal pr ocess cannot be excluded. Trace pleural fluid and atelectasis in the right base. No right lung base pneumonia identifiable.
--- OUTSIDE RECORDS SUMMARY | 2018-03-07 12:21 | XMS REPORT | Clinical Summary ---
:1960 Author Organization [facility] Address [address] [place] [address] Care Team Providers Name Role Phone Johnny Diez DO Primary Care Provider Allergies Active Allergy Reactions Severity Noted Date Comments No Known Drug Allergies Current Medications Prescription Sig. Disp. Refills Start Date End Date Status carvedilol (COREG) Take 25 mg by 12/06/2016 Active 25 MG tablet mouth 2 (two) times a day. furosemide (LASIX) Take 40 mg by 12/06/2016 Active 40 mg tablet mouth once daily. lansoprazole TAKE ONE 11/28/2016 Active (PREVACID) 30 MG CAPSULE BY capsule MOUTH DAILY 30 MIN BEFORE BREAKFAST metFORMIN (FORTAMET) Take 1,000 mg 3 12/06/2016 Active 1,000 mg 24 hr by mouth 2 tablet (two) times a day. spironolactone Take 25 mg by 3 11/28/2016 Active (ALDACTONE) 25 MG mouth once tablet daily. allopurinol Take 100 mg by Active (ZYLOPRIM) 100 MG mouth daily. tablet liraglutide (VICTOZA Inject 1.2 mg Active 2-SAM) 0.6 mg/0.1 mL under the skin (18 mg/3 mL) pen daily. injector aspirin (ECOTRIN) 81 Take 81 mg by Active MG enteric coated mouth daily. tablet insulin asp Inject under Active prt-insulin ASPART the skin. (NovoLOG 70/30) 100 unit/mL (70-30) injection valsartan (DIOVAN) Take 1 tablet 90 tablet 3 01/04/2018 Active 160 MG tablet (160 mg total) by mouth daily. digOXIN (LANOXIN) Take 1 tablet 90 tablet 3 01/04/2018 Active 125 mcg tablet (125 mcg total) 9 by mouth daily. digOXIN (LANOXIN) Take 125 mcg by 3 11/30/2016 Discontinued 125 mcg tablet mouth once 7 daily. valsartan (DIOVAN) Take 160 mg by 3 01/05/2017 Discontinued 160 MG tablet mouth 2 (two) 8 times a day. Active Problems Problem Noted Date Essential hypertension 03/24/2017 Overview: Added automatically from request for surgery [id number] SOB (shortness of breath) 03/24/2017 Overview: Added automatically from request for surgery [id number] Coronary artery disease involving chemehuevi coronary artery of chemehuevi heart 03/24 without angina pectoris Overview: Added automatically from request for surgery [id number] Cardiomyopathy 03/24/2017 Overview: Added automatically from request for surgery [id number] Benign hypertension 01/12/2017 Encounters Date Type Specialty Care Team Description 01/04/2018 Office Visit Cardiology Bruce Galeana CAD in chemehuevi artery MD Asuncion (Primary Dx) 03/31/2017 Hospital Encounter Procedural Dat [facility] Essential hypertension; Cardiology MD Chitra Coronary artery disease involving che[place]huevi coronary artery of che[place]vi heart without angina pectoris; Cardiomyopathy, unspecified type; SOB (shortness of breath) 03/31/2017 Procedure Pass Procedural Cardiology 03/31/2017 Surgery Procedural Dat [facility] Cv left heart cath w Cardiology MD Chitra lv gram cors [[id number] (CPT)] 03/24/2017 Orders Only Cardiology Sony Phelps MA Essential hypertension ( Primary Dx); Coronary artery disease involving che[place]huevi coronary artery of che[place]huevi heart without angina pectoris; Cardiomyopathy, unspecified type; SOB (shortness of breath) 03/23/2017 Office Visit Cardiology Bruce Galeana in chemehuevi artery MD Asuncion (Primary Dx) after 03/06/2017 Social History Tobacco Use Types Packs/Day Years Used Date Never Smoker Alcohol Use Drinks/Week oz/Week Comments Yes Sex Assigned at Date Recorded Not on file Last Filed Vital Signs Vital Sign Reading Time Taken Blood Pressure 104/66 01/04/2018 2:28 PM CDT Pulse 91 01/04/2018 2:28 PM CDT Temperature 35.8 C (96.5 F) 03/31/2017 9:13 AM CDT Respiratory Rate 24 03/31/2017 4:30 PM CDT Oxygen Saturation 96% 03/31/2017 4:30 PM CDT Inhaled Oxygen Concentration - - Weight 120 kg (264 lb) 01/04/2018 2:28 PM CDT Height 177.8 cm (5' 10") 01/04/2018 2:28 PM CDT Body Mass Index 37.88 01/04/2018 2:28 PM CDT Plan of Treatment Date Type Specialty Care Team Description 04/12/2018 Office Visit Cardiology Bruce Galeana MD [address] [facility] [address] [place] [id number] Health Maintenance Due Date Last Done Comments COLON CANCER SCREENING 2008 SHINGRIX VACCINE (#1) 2008 INFLUENZA VACCINE 01/12/2018 Procedures Procedure Name Priority Date/Time Associated Diagnosis Comments ECG 12-LEAD Routine 01/04/2018 1:31 CAD in chemehuevi artery Results for this PM CDT procedure are in the results section. CV LEFT HEART CATH Routine 03/31/2017 12:19 Essential Results for this LV GRAM WITH CORS PM CDT hypertension procedure are in SOB (shortness of the results breath) section. Coronary artery disease involving chemehuevi coronary artery of chemehuevi heart without angina pectoris Cardiomyopathy, unspecified type ZZESTIMATED GFR Routine 03/31/2017 11:52 Results for this AM CDT procedure are in the results section. CREATININE LEVEL Routine 03/31/2017 11:52 Results for this AM CDT procedure are in the results section. ECG 12-LEAD STAT 03/31/2017 9:45 Results for this AM CDT procedure are in the results section. POC GLUCOSE Routine 03/31/2017 9:29 Results for this AM CDT procedure are in the results section. after 03/06/2017 Results ECG 12 lead (01/04/2018 1:31 PM)Only the most recent of2 resultswithin the time period is included. 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 RCA with mild non-obstructive disease LHC with LVEDP 12mmHg and enlarged LV cavity with moderately depressed EF. Hypokinesis most pronounced in the inferior wall Procedure Details Selective coronary angiography and LHC / LV gram via R MAINFRAME ANALYST 4F Performing Organization Address [facility] Phone Number [facility] [address] [place] [address] Estimated GFR (03/31/2017 11:52 AM) GFR Non Af Amer 69 mL/min/1.73 m2 [facility] DEPARTMENT OF PATHOLOGY AND GENOMIC MEDICINE GFR Af Amer 83 mL/min/1.73 m2 [facility] DEPARTMENT OF Comment: PATHOLOGY AND GENOMIC Chronic kidney disease: <60 mL/min/1.73m2 MEDICINE Kidney failure: <15 mL/min/1.73m2 The estimated GFR is calculated from the IDMS-traceable Modification of Diet in Renal Disease Equation. The accuracy of the calculation is poor when the creatinine is normal. Calculated values >90 mL/min/1.73m2 are not reported. This equation has not been validated in children (<18 years), women, the elderly (>70 years), or ethnic groups other than Caucasians and Americans. Specimen Plasma specimen Performing Organization Address City/[facility]/Zipcode Phone Number [facility] DEPARTMENT OF PATHOLOGY AND [address] [place] [phone] [address] MEDICINE Creatinine level (03/31/2017 11:52 AM) Creatinine 1.1 0.7 - 1.2 mg/dL [facility] DEPARTMENT OF PATHOLOGY AND GENOMIC MEDICINE Specimen Plasma specimen Performing Organization Address City/[facility]/Zipcode Phone Number [facility] DEPARTMENT OF PATHOLOGY AND [address] [place] [phone] [facility] [address] MEDICINE POC glucose (03/31/2017 9:29 AM) POC glucose 109 (H) 65 - 99 mg/dL [facility] DEPARTMENT OF PATHOLOGY AND Comment: GENOMIC MEDICINE [facility] Notified RN Meter ID: [id number] Service Rig Operator: Dominik Jackson Performing Organization Address City/State/Zipcode Phone Number [facility] DEPARTMENT OF PATHOLOGY AND [address] [place] [address] GENOMIC MEDICINE after 03/06/2017 Insurance Payer Benefit Plan / Group Subscriber ID Type Phone Address BCBS BCBS OUT OF STATE xxxxxxxxxxxx PPO CIGNA CIGNA PPO xxxxxxxxxxx PPO Work: [phone] [address] [place], [place] [address] [address] [employer] Self 1960 Work: [phone] [place], [place] [address]
== END 2018-03-07 05:55 | disposition home or self-care (01) ==
LOC: ER 02:44
DX: M62.838 Other muscle spasm (principal); E83.51 Hypocalcemia; I10 Essential (primary) hypertension; E11.9 Type 2 diabetes mellitus without complications; I50.9 Heart failure, unspecified; Z79.82 Long term (current) use of aspirin; Z79.4 Long term (current) use of insulin
CPT/HCPCS: 36415; 74176; 76377; 80048; 80076; 81003; 83690; 84484; 85025; 93005; 96365; 96375; 99284; J0610; J2175; J2405